=== PATIENT | female | born 1960 | race Hispanic/Latino ===

== ENCOUNTER 2018-09-15 18:43 | Inpatient (IN) | payer OTHER ==
[2018-09-15] VITALS (13 sets, daily range): BP systolic 89–106; BP diastolic 48–71
[~2018-09-15] VITALS: Ht 154.9 cm; Wt 59.4 kg
[2018-09-15] MEDS ORDERED: SODIUM CHLORIDE 0.9% 1000ML 1,000 ML IV SCH (18:50)
[2018-09-15] MEDS ORDERED: IPRATROPIUM BROMIDE 0.02% 2.5 ML NEB NEB STA (18:50)
[2018-09-15] MEDS ORDERED: LEVALBUTEROL HCL SOLN NEBU 1.25 MG/3 ML NEB INH ONE (19:00)
[2018-09-15] MEDS ORDERED: CEFTRIAXONE SOD 1 GM VIAL IV ONE (19:00)
[2018-09-15] MEDS ORDERED: FUROSEMIDE INJ 10 MG/ML 4 ML VIAL IV STA (19:03)
[2018-09-15] MEDS ORDERED: ACETAMINOPHEN 325 MG TAB PO NR (20:00)
[2018-09-15] MEDS ORDERED: FAMOTIDINE 20 MG/2 ML VIAL IV NR (20:00)
[2018-09-15] MEDS ORDERED: CEFTRIAXONE SOD 2 GM/NS 100 ML 100 ML IV ONE (20:00)
[2018-09-15] MEDS ORDERED: ASPIRIN 81 MG CHEW TAB PO ONE ×2 (20:00→20:15)
[2018-09-15] MEDS ORDERED: POTASSIUM CHLORIDE 20 MEQ TAB CR PO STA (20:02)
[2018-09-15] MEDS ORDERED: DEXTROSE 50% SYRINGE 50 ML IV PRN (20:15)
[2018-09-15] MEDS ORDERED: SODIUM CHLORIDE FLUSH 10 ML SYR INJ PRN (20:15)
[2018-09-15] MEDS: AZITHROMYCIN 500MG/NS 250 ML 250 ML IV SCH (20:30)
[2018-09-15] MEDS: INSULIN REGULAR, HUMAN 100 UNIT/1 ML 3ML VIAL SQ SCH (21:00)
--- NOTE | 2018-09-15 21:25 | NUR ---
Received to 191 from free standing ER. Placed on EKG, pulse ox & NBP for monitoring. Admission history, family history, & initial admission assessment completed. Addendum: 09/22/18 at 1506 by Narinder Grant RN Report attempted twice before third attempt, placed on hold all three times
[2018-09-15] MEDS ORDERED: FEOSOL45 MG PO (22:10)
[2018-09-15] MEDS ORDERED: METOCLOPRAMIDE10 MG PO (22:10)
[2018-09-15] MEDS ORDERED: FUROSEMIDE40 MG PO (22:10)
[2018-09-15] MEDS ORDERED: LOVASTATIN20 MG PO (22:10)
[2018-09-15] MEDS ORDERED: LOSARTAN POTASS25 MG PO (22:10)
[2018-09-15] MEDS ORDERED: OMEPRAZOLE40 MG PO (22:10)
--- NOTE | 2018-09-15 22:16 | Diagnostic Imaging Report ---
CXR 1 [facility], 09/15/2018 12:00 AM Technique: CXR 1 [facility] Comparison: None available. Clinical history: Shortness of breath, cough, congestion for a few days Findings: Single portable chest radiograph. Cardiomediastinal silhouette is upper limits of normal. Diffuse perihilar and bilateral hazy opacity. No significant effusion appreciated on limited portable technique. No pneumothorax. Impression: 1. Heart size upper limits of normal for technique. 2. Diffuse bilateral opacity which could reflect edema and/or underlying atypical infection. Consider follow-up upright PA and lateral. Signed by: Dr Paige Espinoza MD on 09/15/2018 10:13 PM
[2018-09-15] MEDS ORDERED: GLIPIZIDE ER2.5 MG PO (22:18)
[2018-09-16] VITALS (56 sets, daily range): BP systolic 80–117; BP diastolic 43–90
[2018-09-16 01:16] LABS: CREATINE KINASE 149 IU/L (29-168)
[2018-09-16 05:00] LABS: BASOPHILS % 0.6 % (0.0-1.0); EOSINOPHILS % 0.4 % (0.0-6.0); HEMATOCRIT 37.1 % (34.2-44.1); HEMOGLOBIN 12.2 g/dL (12.0-16.0); LYMPHOCYTES # (AUTO) 1.6 (1.0-3.2); MEAN CORPUSCULAR HEMOGLOBIN 29.5 pg (28-32); MEAN CORPUSCULAR HGB CONC 32.9 g/dL (31-35); MEAN CORPUSCULAR VOLUME 89.8 fL (81-99); MONOCYTES # (AUTO) 0.4 (0.2-0.8); MONOCYTES % 6.5 % (4.4-11.3); NEUTROPHILS # (AUTO) 4.7 (2.1-6.9); NEUTROPHILS % 69.4 % (38.7-80.0); PLATELET COUNT 279 x10e3/uL (140-360); RED BLOOD COUNT 4.13 x10e6/uL (3.6-5.1); RED CELL DISTRIBUTION WIDTH 12.4 % (11.7-14.4)
[2018-09-16 05:38] LABS: CREATINE KINASE MB 4.9 ng/mL (0-5.0)
[2018-09-16 06:14] LABS: ALANINE AMINOTRANSFERASE 21 IU/L (0-55); ALBUMIN 3.5 g/dL (3.5-5.0); ALBUMIN/GLOBULIN RATIO 1.1 (0.8-2.0); ALKALINE PHOSPHATASE 49 IU/L (40-150); ANION GAP 13.1 mmol/L (8-16); BLOOD UREA NITROGEN 14 mg/dL (7-26); BUN/CREATININE RATIO 20 (6-25); CALCIUM 8.8 mg/dL (8.4-10.2); CARBON DIOXIDE 26 mmol/L (22-29); CHLORIDE 105 mmol/L (98-107); EST GLOMERULAR FILTRATION RATE > 60 ML/MIN (60-); GLUCOSE 93 mg/dL (74-118); POTASSIUM 4.1 mmol/L (3.5-5.1); SODIUM 140 mmol/L (136-145)
[2018-09-16] MEDS: INSULIN REGULAR, HUMAN 100 UNIT/1 ML 3ML VIAL SQ SCH ×4 (07:30→21:00)
[2018-09-16] MEDS ORDERED: ASPIRIN 81 MG CHEW TAB PO ONE (10:15)
[2018-09-16 10:29] LABS: CHOL/HDL RATIO 2.8 (3.0-3.6)
[2018-09-16 11:18] LABS: % IRON SATURATION 30 % (15-50); ALANINE AMINOTRANSFERASE 20 IU/L (0-55); ALBUMIN 3.4 g/dL (3.5-5.0); ALBUMIN/GLOBULIN RATIO 1.1 (0.8-2.0); ALKALINE PHOSPHATASE 49 IU/L (40-150); ANION GAP 10.8 mmol/L (8-16); B-TYPE NATRIURETIC PEPTIDE2 653.3 pg/mL (0-100); BLOOD UREA NITROGEN 14 mg/dL (7-26); BUN/CREATININE RATIO 21 (6-25); CARBON DIOXIDE 28 mmol/L (22-29); CHLORIDE 104 mmol/L (98-107); CREATININE, SERUM 0.68 mg/dL (0.57-1.11); EST GLOMERULAR FILTRATION RATE > 60 ML/MIN (60-); GLUCOSE 108 mg/dL (74-118); IRON 93 ug/dL (50-170); POTASSIUM 3.8 mmol/L (3.5-5.1); SODIUM 139 mmol/L (136-145); TOTAL IRON BINDING CAPACITY 308 ug/dL (261-478); TRANSFERRIN 220 mg/dL (180-382)
[2018-09-16 11:23] LABS: CREATINE KINASE MB 4.8 ng/mL (0-5.0)
--- NOTE | 2018-09-16 13:15 | History and Physical ---
CHIEF COMPLAINT: Ms. Gill is a complex 57-year-old woman with diagnoses of diabetes, hypertension, who presented to the freestanding emergency room on the afternoon of the with a complaint of confusion and shortness of breath. HISTORY OF PRESENT ILLNESS: As obtained from the daughter at bedside in Sami. The patient speaks only Azerbaijani, reporting that the patient had been at work and got lost on the way home and that when the daughter found her at a service station that she was confused and short of breath. The patient denies any recent fever. She has felt short of breath. She adds that she did have some ankle swelling in recent months until placed on furosemide. Evidently found to have elevated blood sugars as well. PAST MEDICAL HISTORY: Significant only for the recent diagnoses within the past year of hypertension, diabetes, and edema. HOME MEDICATIONS: Recently have been 1. Furosemide 40 mg daily. 2. Glipizide 2.5 mg daily. 3. Iron tablet 45 mg daily. 4. Losartan 25 mg daily. 5. Lovastatin 20 mg daily. 6. Metoclopramide 10 mg daily. 7. Omeprazole 40 mg daily. PERSONAL/SOCIAL HISTORY: She does not smoke or drink. She lives with her boyfriend who is from [facility]. They do not eat the same food. REVIEW OF SYSTEMS NEUROLOGIC: She denies any previous problems with speech or strength. CARDIOVASCULAR: She does not describe any chest pain. HEMATOLOGIC: She reports some previous anemia, taking iron tablets. PHYSICAL EXAMINATION GENERAL: At this time shows a pleasant lady who is alert and responsive, speaking Azerbaijani only. VITAL SIGNS: Five feet 1 inches tall, weighing 124 pounds. Blood pressure is 108/63 and pulse 93 and regular. HEENT: Unremarkable. NECK: No jugular venous distention. No bruits. Thyroid not palpable. THORAX: Heart sounds S1, S2 are equal. No murmurs. RESPIRATORY: Lungs have faint crackles at the bases. ABDOMEN: Scaphoid. Normal bowel sounds, nontender. EXTREMITIES: No cyanosis, clubbing or edema. EKG shows sinus rhythm and sinus tachycardia. Computer interprets anterior scar but I disagree; there are lateral T-wave inversions. Flu screen is negative. Urinalysis is relatively unremarkable. BNP is 500. CBC shows white count 11.9, hemoglobin 14.8, hematocrit 44.7. Troponin is normal. ASSESSMENTS 1. Confusion, etiology not clear. Seems to have resolved at this time. 2. Diagnosis of congestive heart failure with elevated B natriuretic peptide and history of ankle edema, also etiology not clear. 3. History of hyperglycemia or diabetes. 4. History of hypertension. PLAN: Will withhold all of her medications and await echocardiogram. Repeat EKG. Will check thyroid functions and plan Cardiolite for her. She remains otherwise stable. Job#: [id number] ROSIO
--- NOTE | 2018-09-16 13:21 | Diagnostic Imaging Report ---
EXAM: XR CHEST 1 VIEW DATE: 09/16/2018 10:01 AM INDICATION: CHF COMPARISON: 10/13/2000, no report available FINDINGS: Lines and Tubes: None Heart and Mediastinum: Heart upper limits of normal. Lungs and Pleura: Mild prominence of the interstitium with ill-defined basilar opacities. Elevation right hemidiaphragm. Bones and Soft Tissues: No acute findings. IMPRESSION: 1. Mild edema. Signed by: Dr. Nicho Sosa MD on 09/16/2018 1:17 PM
[2018-09-16 13:24] LABS: FOLATE 16.7 ng/mL (7.0-15.4)
--- NOTE | 2018-09-16 16:06 | NUR ---
Nutrition Screen Note RD Recommendation for Physician: -Continue cardiac diet as ordered Plan of Care: RD following, monitoring for tolerance and adequacy Nutrition reason for involvement: Diagnosis CHF Primary Diagnose(s): 1. Confusion, etiology not clear. 2. Diagnosis of congestive heart failure with elevated B natriuretic peptide and history of ankle edema, also etiology not clear. PMH: DM, HTN w HbA1c of 5.3% Ht: 61in Wt: 124lb BMI: 23.4kg/m2 IBW: 105lb RD Assessment: (09/15) Chart reviewed. Labs and meds reviewed. 57 yo F, who is admitted for confusion and SOB. Daughters present on bedside to provide hx while pt is sleeping. Daughter reports pt has been eating well at home without any GI complain [employer]. Pt ate 100% of her breakfast and lunch today. LBM 09/15, normal per daughter. No complain of chewing or swallowing difficulty noted. Pt has been making effort to lose weight in the past year. No concern for malnutrition at this time. Will continue to monitor and follow. Current Diet: cardiac diet Malnutrition Evaluation (09/16) The patient does not meet criteria for a specified degree of malnutrition at this time. Will re-evaluate at follow-up as appropriate. Diet Education Needs Assessment: Diet education not indicated. Nutrition Care Level: low Signed: Rosina Montenegro, MS, RD, LD
[2018-09-16] MEDS: AZITHROMYCIN 500MG/NS 250 ML 250 ML IV SCH (19:10)
--- NOTE | 2018-09-16 20:52 | NUR ---
pt complained of chest pain after azithromycin started EKG was ordered
[2018-09-16] MEDS: ONDANSETRON HCL INJ 2 MG/ML VIAL IV PRN (21:07)
[2018-09-16] MEDS ORDERED: DIPHENHYDRAMINE HCL 25 MG CAP PO PRN (21:15)
[2018-09-16] MEDS ORDERED: ACETAMINOPHEN 325 MG TAB PO PRN (21:15)
[2018-09-16] MEDS ORDERED: DIPHENHYDRAMINE HCL 25 MG CAP ONE (21:15)
[2018-09-16] MEDS ORDERED: ACETAMINOPHEN 325 MG TAB ONE (21:16)
[2018-09-17] VITALS (43 sets, daily range): BP systolic 83–112; BP diastolic 33–74
[2018-09-17 04:58] LABS: BASOPHILS % 0.6 % (0.0-1.0); EOSINOPHILS # (AUTO) 0.1 (0.0-0.4); EOSINOPHILS % 2.1 % (0.0-6.0); HEMATOCRIT 40.7 % (34.2-44.1); HEMOGLOBIN 13.2 g/dL (12.0-16.0); LYMPHOCYTES # (AUTO) 1.9 (1.0-3.2); LYMPHOCYTES % 28.6 % (18.0-39.1); MEAN CORPUSCULAR HEMOGLOBIN 29.5 pg (28-32); MEAN CORPUSCULAR HGB CONC 32.4 g/dL (31-35); MEAN CORPUSCULAR VOLUME 90.8 fL (81-99); MONOCYTES # (AUTO) 0.4 (0.2-0.8); MONOCYTES % 6.3 % (4.4-11.3); NEUTROPHILS # (AUTO) 4.1 (2.1-6.9); NEUTROPHILS % 62.2 % (38.7-80.0); PLATELET COUNT 267 x10e3/uL (140-360); RED BLOOD COUNT 4.48 x10e6/uL (3.6-5.1); RED CELL DISTRIBUTION WIDTH 12.5 % (11.7-14.4)
[2018-09-17 05:16] LABS: ANION GAP 12.3 mmol/L (8-16); BLOOD UREA NITROGEN 19 mg/dL (7-26); BUN/CREATININE RATIO 28 (6-25); CALCIUM 8.8 mg/dL (8.4-10.2); CARBON DIOXIDE 26 mmol/L (22-29); CHLORIDE 105 mmol/L (98-107); CREATININE, SERUM 0.68 mg/dL (0.57-1.11); EST GLOMERULAR FILTRATION RATE > 60 ML/MIN (60-); GLUCOSE 101 mg/dL (74-118); POTASSIUM 4.3 mmol/L (3.5-5.1); SODIUM 139 mmol/L (136-145)
--- NOTE | 2018-09-17 07:00 | NUR ---
BEDSIDE REPORT RECVD. ASSESSMENT COMPLETED AND RECORDED. VSS AND RECORDED. DENIES PAIN AND IS DUE TO VOID. VERBALIZES UNDERSTANDING TO CURRENT POC. POC EXPLAINED IN [facility].
[2018-09-17] MEDS: INSULIN REGULAR, HUMAN 100 UNIT/1 ML 3ML VIAL SQ SCH ×4 (07:30→21:00)
[2018-09-17] MEDS: D5.45%NS/KCL 20MEQ 1,000 ML IV SCH ×3 (10:19→21:58)
[2018-09-17] MEDS ORDERED: SODIUM CHLORIDE FLUSH 10 ML SYR INJ PRN (10:30)
[2018-09-17] MEDS ORDERED: DIPHENHYDRAMINE HCL 25 MG CAP PO PRN (10:30)
--- NOTE | 2018-09-17 11:30 | NUR ---
DR MACKEY MAKING ROUNDS, UPDATED ON STATUS. DISCUSSED WITH PT AND DAUGHTER IN [facility] POC AND PROCEDURES FOR TOMORROW. PT VERBALIZING CONSENT. WRITTEN INFORMATION ON PENDING PROCEDURES IN [facility] GIVEN TO PT.
--- NOTE | 2018-09-17 11:45 | Diagnostic Imaging Report ---
Examination: Single AP view of the chest. COMPARISON: 09/16/2018 INDICATION: Post cardiac catheterization DISCUSSION: The patient is rotated to the left. The lungs remain well-inflated. Stable right hemidiaphragmatic elevation. Upper limits of normal cardiac silhouette with prominence of the perihilar interstitium, unchanged compared to prior. No new consolidation. No acute osseous abnormality. IMPRESSION: Stable chest with findings of mild interstitial pulmonary edema. Signed by: Dr. Chai Starr M.D. on 09/17/2018 11:42 AM
--- NOTE | 2018-09-17 13:23 | NUR ---
CONSENTS SIGNED PER MD ORDER. NO FURTHER QUESTIONS BY PT OR DAUGHTER AT THIS TIME.
[2018-09-17] MEDS: SODIUM CHLORIDE 0.9% 1000ML 1,000 ML IV SCH ×2 (15:47→19:00)
[2018-09-18] VITALS (47 sets, daily range): BP systolic 77–140; BP diastolic 32–84
[2018-09-18] MEDS: SODIUM CHLORIDE 0.9% 1000ML 1,000 ML IV SCH (03:09)
[2018-09-18 04:52] LABS: BASOPHILS % 0.6 % (0.0-1.0); EOSINOPHILS # (AUTO) 0.2 (0.0-0.4); EOSINOPHILS % 2.3 % (0.0-6.0); HEMATOCRIT 35.4 % (34.2-44.1); HEMOGLOBIN 11.2 g/dL (12.0-16.0); LYMPHOCYTES # (AUTO) 1.6 (1.0-3.2); LYMPHOCYTES % 24.5 % (18.0-39.1); MEAN CORPUSCULAR HEMOGLOBIN 29.5 pg (28-32); MEAN CORPUSCULAR HGB CONC 31.6 g/dL (31-35); MEAN CORPUSCULAR VOLUME 93.2 fL (81-99); MONOCYTES # (AUTO) 0.4 (0.2-0.8); MONOCYTES % 6.5 % (4.4-11.3); NEUTROPHILS # (AUTO) 4.2 (2.1-6.9); NEUTROPHILS % 65.8 % (38.7-80.0); PLATELET COUNT 245 x10e3/uL (140-360); RED CELL DISTRIBUTION WIDTH 12.3 % (11.7-14.4)
[2018-09-18 05:12] LABS: INR 0.95; PROTHROMBIN TIME 13.5 seconds (11.9-14.5)
[2018-09-18 05:13] LABS: PARTIAL THROMBOPLASTIN TIME 31.9 seconds (23.8-35.5)
[2018-09-18 05:20] LABS: ANION GAP 13.3 mmol/L (8-16); BLOOD UREA NITROGEN 12 mg/dL (7-26); BUN/CREATININE RATIO 19 (6-25); CALCIUM 8.4 mg/dL (8.4-10.2); CARBON DIOXIDE 23 mmol/L (22-29); CHLORIDE 107 mmol/L (98-107); CREATININE, SERUM 0.64 mg/dL (0.57-1.11); EST GLOMERULAR FILTRATION RATE > 60 ML/MIN (60-); GLUCOSE 90 mg/dL (74-118); POTASSIUM 4.3 mmol/L (3.5-5.1); SODIUM 139 mmol/L (136-145)
[2018-09-18] MEDS: INSULIN REGULAR, HUMAN 100 UNIT/1 ML 3ML VIAL SQ SCH ×4 (07:30→21:00)
[2018-09-18] MEDS ORDERED: LIDOCAINE HCL 2% LOCAL 20 ML VIAL ONE (08:55)
[2018-09-18] MEDS ORDERED: HEPARIN SOD/SOD CHLORIDE 2,000 ML ONE (08:56)
[2018-09-18] MEDS ORDERED: IOPAMIDOL 370 MG/ML 200 ML INFUS..BTL INJ ONE (08:56)
[2018-09-18] MEDS ORDERED: FUROSEMIDE INJ 10 MG/ML 4 ML VIAL ONE (09:28)
[2018-09-18] MEDS: FUROSEMIDE INJ 10 MG/ML 2 ML VIAL IV SCH (09:29)
[2018-09-18] MEDS: ONDANSETRON HCL INJ 2 MG/ML VIAL IV PRN (09:35)
[2018-09-18] MEDS: CARVEDILOL 3.125 MG TAB PO SCH ×2 (09:43→17:00)
[2018-09-18] MEDS: LISINOPRIL 2.5 MG TAB PO SCH (09:43)
--- NOTE | 2018-09-18 10:21 | Diagnostic Imaging Report ---
PROCEDURE: A single AP view of the chest. COMPARISON: Chest radiograph 09/17/2018. INDICATIONS: STATUS POST HEART CATH FINDINGS: Lines/tubes: None. Lungs: Persistent mild perihilar and interstitial opacities. Mild patchy left basilar opacity. No evidence of lobar consolidation. Pleura: Trace bilateral pleural effusions. No evidence of pneumothorax. Heart and mediastinum: The cardiomediastinal silhouette is unchanged. Bones: No acute bony abnormality. IMPRESSION: Persistent mild pulmonary interstitial edema and trace bilateral pleural effusions. Patchy left basilar opacity, likely atelectasis. Dictated by: STEWART BELL M.D. on 09/18/2018 at 10:32 Electronically approved by: STEWART BELL M.D. on 09/18/2018 at 10:32
--- NOTE | 2018-09-18 19:00 | NUR ---
Bedside report received from Olive Tinajero RN. Pt received sitting up in bed with eyes open, AAOx3, pt family at the bedside. Bed in lowest and locked position, call light in reach of the pt, alternating pressure mattress in use. Pt reports no pain or discomfort at this time, no signs of distress noted. Yellow socks in use, falling star posted to door frame, PUP signs posted to door frame.
[2018-09-19] VITALS (76 sets, daily range): BP systolic 53–125; BP diastolic 29–89
[2018-09-19 05:46] LABS: BASOPHILS % 0.7 % (0.0-1.0); EOSINOPHILS # (AUTO) 0.2 (0.0-0.4); EOSINOPHILS % 4.1 % (0.0-6.0); HEMATOCRIT 37.5 % (34.2-44.1); LYMPHOCYTES # (AUTO) 1.5 (1.0-3.2); LYMPHOCYTES % 26.6 % (18.0-39.1); MEAN CORPUSCULAR HEMOGLOBIN 29.2 pg (28-32); MEAN CORPUSCULAR VOLUME 91.2 fL (81-99); MONOCYTES # (AUTO) 0.5 (0.2-0.8); MONOCYTES % 8.3 % (4.4-11.3); NEUTROPHILS # (AUTO) 3.3 (2.1-6.9); NEUTROPHILS % 60.1 % (38.7-80.0); PLATELET COUNT 273 x10e3/uL (140-360); RED BLOOD COUNT 4.11 x10e6/uL (3.6-5.1); RED CELL DISTRIBUTION WIDTH 12.2 % (11.7-14.4)
--- NOTE | 2018-09-19 05:48 | Diagnostic Imaging Report ---
CHEST SINGLE (PORTABLE), 09/19/2018 7:00 AM Technique: CHEST SINGLE (PORTABLE) Comparison: Previous day Clinical history: Congestive heart failure Findings: See Impression Impression: 1. Stable mildly enlarged cardiac silhouette. 2. Central vascular congestion. No effusion or pneumothorax. Signed by: Dr Paige Espinoza MD on 09/19/2018 5:45 AM
[2018-09-19 06:11] LABS: ANION GAP 12.8 mmol/L (8-16); BLOOD UREA NITROGEN 10 mg/dL (7-26); BUN/CREATININE RATIO 14 (6-25); CARBON DIOXIDE 30 mmol/L (22-29); CHLORIDE 102 mmol/L (98-107); EST GLOMERULAR FILTRATION RATE > 60 ML/MIN (60-); GLUCOSE 88 mg/dL (74-118); POTASSIUM 3.8 mmol/L (3.5-5.1); SODIUM 141 mmol/L (136-145)
--- NOTE | 2018-09-19 07:00 | NUR ---
Bedside report given to Olive Valdes RN. Pt reports no pain or discomfort at this time. No signs of distress noted. Pt family at the bedside.
[2018-09-19] MEDS: INSULIN REGULAR, HUMAN 100 UNIT/1 ML 3ML VIAL SQ SCH ×4 (07:30→19:55)
[2018-09-19] MEDS: FUROSEMIDE INJ 10 MG/ML 2 ML VIAL IV SCH (10:00)
[2018-09-19] MEDS: CARVEDILOL 3.125 MG TAB PO SCH ×2 (10:00→16:53)
[2018-09-19] MEDS: LISINOPRIL 2.5 MG TAB PO SCH (11:46)
--- NOTE | 2018-09-19 15:19 | NUR ---
Nutrition Screen Note RD Recommendation for Physician: Please specify reason for nutrition consult. Continue diet as ordered Plan of Care: RD following, monitoring for adequacy and tolerance Nutrition reason for involvement: MD Consult Primary Diagnose(s): [facility] Ht:61 in Wt:135.31lbs BMI:25.6 kg/m2 IBW:105lbs RD Assessment:(09/19/2018) Consult received. The RD nor nurse was unable to determine the reason for the consult after reviewe of the EMR and chart on the unit Current Diet: cardiac. Pt is eating with a fair to good PO intake. Daughter present at bedside translating. Malnutrition Evaluation (09/19/2018) The patient does not meet criteria for a specified degree of malnutrition at this time. Will re-evaluate at follow-up as appropriate. Diet Education Needs Assessment: Diet education not indicated. Diet Adequacy: Meeting calorie needs, Meeting protein needs, Meeting fluid needs Tolerance: Tolerating PO Nutrition Care Level: earl Hernandez RD, LD, CNSC
--- NOTE | 2018-09-19 19:00 | NUR ---
Bedside report received from Olive Tinajero RN. Pt received resting in bed with eyes open, AAOx4, pt reports no pain or discomfort at this time, no signs of distress noted, bed in lowest and locked position, call light in reach of the pt, pts daughter and boyfriend at the bedside, yellow socks on pt, alternating pressure mattress in use.
[2018-09-20] VITALS (40 sets, daily range): BP systolic 86–118; BP diastolic 43–78
--- NOTE | 2018-09-20 07:00 | NUR ---
Bedside report given to Olive Tinajero RN. Pt resting in bed, reports no pain or discomfort at this time, no signs of distress noted at this time. Family at the bedside.
[2018-09-20] MEDS: ONDANSETRON HCL INJ 2 MG/ML VIAL IV PRN ×2 (07:09→14:30)
[2018-09-20] MEDS: GUAIFENESIN/DEXTROMETHORPHAN LIQD 5 ML UDC NG PRN (07:09)
[2018-09-20] MEDS: INSULIN REGULAR, HUMAN 100 UNIT/1 ML 3ML VIAL SQ SCH ×4 (07:30→20:38)
[2018-09-20] MEDS: FUROSEMIDE INJ 10 MG/ML 2 ML VIAL IV SCH (08:50)
[2018-09-20] MEDS: LISINOPRIL 2.5 MG TAB PO SCH (08:51)
[2018-09-20] MEDS: CARVEDILOL 3.125 MG TAB PO SCH ×2 (08:51→17:00)
--- NOTE | 2018-09-20 08:51 | NUR ---
Assisted patient to toilet, full bath, shampoo, gown and linen change; new BP cuff and pulse ox in place. Returned to bed and sitting up conversing with daughters. No present concerns.
--- NOTE | 2018-09-20 13:30 | NUR ---
Dr Healy to bedside; plan for patient to have heart catheterization tomorrow. Patient and family informed of procedure, risks, benefits, and all questions answered. All agree to the procedure and state understanding of the indication and possible procedures. No IV fluids are to be administered.
--- NOTE | 2018-09-20 16:37 | NUR ---
Consent obtained for heart cath, blood, and all possible procedures as per Dr Healy' orders.
--- NOTE | 2018-09-20 19:00 | NUR ---
Bedside report received from Olive Tinajero RN. Pt received resting in bed with eyes open AAOx4, pt reports no pain or discomfort at this time, no signs of distress noted. Discussed plan of care with pt, pt dtr, and pts boyfriend. Pt bed in lowest and locked position, call light in reach of the pt, yellow socks on pt, alternating pressure mattress in use. Consent for procedure 09/21/18 reviewed and in pt chart.
[2018-09-21] VITALS (39 sets, daily range): BP systolic 81–146; BP diastolic 39–97
[2018-09-21] MEDS: INSULIN REGULAR, HUMAN 100 UNIT/1 ML 3ML VIAL SQ SCH ×4 (07:30→20:28)
[2018-09-21] MEDS: LISINOPRIL 2.5 MG TAB PO SCH (08:11)
[2018-09-21] MEDS: CARVEDILOL 3.125 MG TAB PO SCH ×2 (08:11→18:51)
[2018-09-21 08:42] LABS: BASOPHILS # (AUTO) 0.1 (0.0-0.1); EOSINOPHILS # (AUTO) 0.2 (0.0-0.4); EOSINOPHILS % 2.1 % (0.0-6.0); HEMATOCRIT 39.9 % (34.2-44.1); HEMOGLOBIN 13.1 g/dL (12.0-16.0); LYMPHOCYTES # (AUTO) 1.7 (1.0-3.2); LYMPHOCYTES % 24.1 % (18.0-39.1); MEAN CORPUSCULAR HEMOGLOBIN 29.7 pg (28-32); MEAN CORPUSCULAR HGB CONC 32.8 g/dL (31-35); MEAN CORPUSCULAR VOLUME 90.5 fL (81-99); MONOCYTES # (AUTO) 0.5 (0.2-0.8); MONOCYTES % 6.3 % (4.4-11.3); NEUTROPHILS # (AUTO) 4.7 (2.1-6.9); NEUTROPHILS % 66.4 % (38.7-80.0); PLATELET COUNT 325 x10e3/uL (140-360); RED BLOOD COUNT 4.41 x10e6/uL (3.6-5.1)
[2018-09-21 08:57] LABS: INR 0.91; PROTHROMBIN TIME 13.1 seconds (11.9-14.5)
[2018-09-21] MEDS: FUROSEMIDE INJ 10 MG/ML 2 ML VIAL IV SCH (09:00)
[2018-09-21] MEDS: ONDANSETRON HCL INJ 2 MG/ML VIAL IV PRN (09:00)
[2018-09-21 09:01] LABS: ANION GAP 13.1 mmol/L (8-16); BLOOD UREA NITROGEN 13 mg/dL (7-26); BUN/CREATININE RATIO 17 (6-25); CALCIUM 9.5 mg/dL (8.4-10.2); CARBON DIOXIDE 31 mmol/L (22-29); CHLORIDE 97 mmol/L (98-107); CREATININE, SERUM 0.75 mg/dL (0.57-1.11); EST GLOMERULAR FILTRATION RATE > 60 ML/MIN (60-); GLUCOSE 108 mg/dL (74-118); POTASSIUM 5.1 mmol/L (3.5-5.1); SODIUM 136 mmol/L (136-145)
[2018-09-21] MEDS ORDERED: MIDAZOLAM HCL 2 MG/2 ML VIAL ONE (10:41)
[2018-09-21] MEDS ORDERED: HEPARIN SOD/SOD CHLORIDE 2,000 ML ONE (10:42)
[2018-09-21] MEDS ORDERED: FENTANYL CITRATE/PF 100MCG/2 ML INJ ONE (10:42)
[2018-09-21] MEDS ORDERED: LIDOCAINE HCL 2% LOCAL 20 ML VIAL ONE (10:42)
[2018-09-21] MEDS ORDERED: IOPAMIDOL 370 MG/ML 200 ML INFUS..BTL INJ ONE ×2 (10:42→11:18)
[2018-09-21] MEDS ORDERED: SODIUM CHLORIDE 0.9% 1000ML 1,000 ML ONE (10:42)
[2018-09-21] MEDS: GUAIFENESIN/DEXTROMETHORPHAN LIQD 5 ML UDC NG PRN ×2 (12:18→19:43)
--- NOTE | 2018-09-21 18:33 | NUR ---
right groin dressing from laboratory phlebotomist intact with small amount of drainage on bandage. pulses checked as ordered. pt in good spirits and currently out of bed in chair. family at bedside. vital signs remain stable today.
--- NOTE | 2018-09-21 19:30 | NUR ---
Received patient hemodynamically stable, relative attending, no complaints raised
--- NOTE | 2018-09-21 21:00 | NUR ---
blood glucose 83mgdl, patient stable calm in bed
[2018-09-22] VITALS (25 sets, daily range): BP systolic 78–134; BP diastolic 43–86
--- NOTE | 2018-09-22 00:55 | NUR ---
Patient calmly asleep in bed, no complaints raised
--- NOTE | 2018-09-22 04:00 | NUR ---
Patient remains hemodynamically stable, no complaint raised
[2018-09-22 04:58] LABS: ANION GAP 12.2 mmol/L (8-16); BLOOD UREA NITROGEN 12 mg/dL (7-26); BUN/CREATININE RATIO 18 (6-25); CALCIUM 8.8 mg/dL (8.4-10.2); CARBON DIOXIDE 28 mmol/L (22-29); CHLORIDE 102 mmol/L (98-107); CREATININE, SERUM 0.67 mg/dL (0.57-1.11); EST GLOMERULAR FILTRATION RATE > 60 ML/MIN (60-); GLUCOSE 89 mg/dL (74-118); POTASSIUM 4.2 mmol/L (3.5-5.1); SODIUM 138 mmol/L (136-145)
[2018-09-22] MEDS: GUAIFENESIN/DEXTROMETHORPHAN LIQD 5 ML UDC NG PRN ×2 (06:30→15:11)
--- NOTE | 2018-09-22 07:17 | NUR ---
Handed over hemodynamically stable
[2018-09-22] MEDS: INSULIN REGULAR, HUMAN 100 UNIT/1 ML 3ML VIAL SQ SCH ×4 (07:30→20:44)
[2018-09-22] MEDS: LISINOPRIL 2.5 MG TAB PO SCH (09:00)
[2018-09-22] MEDS: FUROSEMIDE INJ 10 MG/ML 2 ML VIAL IV SCH (09:28)
[2018-09-22] MEDS: CARVEDILOL 3.125 MG TAB PO SCH ×2 (09:29→17:07)
--- NOTE | 2018-09-22 09:45 | NUR ---
MD Healy paged for possible downgrade orders, awaiting response
--- NOTE | 2018-09-22 14:43 | NUR ---
Repost called to Inés CAMERON on MS2
--- NOTE | 2018-09-22 15:00 | NUR ---
Patient arrived from ICU via wheelchair with family at side. Patient is awake and alertx3, denies any CP or SOB at this time. Patient instructed to call for assistance as needed in Burmese and verbalized understanding. Call villaseñor within reach.
--- NOTE | 2018-09-22 19:05 | NUR ---
Walking rounds done and report given to oncoming shift.
[2018-09-23] VITALS: BP 123/53
[2018-09-23 04:00] VITALS: BP 96/50
[2018-09-23] MEDS: GUAIFENESIN/DEXTROMETHORPHAN LIQD 5 ML UDC NG PRN (06:09)
[2018-09-23] MEDS: INSULIN REGULAR, HUMAN 100 UNIT/1 ML 3ML VIAL SQ SCH ×3 (07:30→15:56)
[2018-09-23 08:42] VITALS: BP 105/58
[2018-09-23] MEDS: FUROSEMIDE INJ 10 MG/ML 2 ML VIAL IV SCH (09:10)
[2018-09-23] MEDS: CARVEDILOL 3.125 MG TAB PO SCH ×2 (09:30→16:34)
[2018-09-23] MEDS: LISINOPRIL 2.5 MG TAB PO SCH (09:30)
[2018-09-23] MEDS ORDERED: REGADENOSON 0.4 MG/5 ML SYR IV ONE (09:59)
[2018-09-23 12:00] VITALS: BP 114/63
--- NOTE | 2018-09-23 12:55 | NUR ---
Patient is back to the floor from having stress test. She is awake alert and oriented x3. She denies needing anything at this time, call light in reach
--- NOTE | 2018-09-23 14:41 | Operative Report ---
DATE OF PROCEDURE: September 21, 2018 TITLE OF PROCEDURE: Right and left heart catheterization. Patient was brought to the optical laboratory manager in a fasting and partially sedated state. Right groin prepped with scrub and 2% Xylocaine. A 4-Uzbek sheath was placed in the right common femoral artery and a 6-Uzbek placed in the right common femoral vein. A [place] catheterization was performed with sats and pressures recorded. The left ventriculogram performed with a 4-Uzbek pigtail, and the left main and the right coronary were both injected with the 4-Uzbek left Koby catheter as the right coronary has an anomalous origin near the left main. Inspection of films showed the left ventricular function to be reduced, estimated ejection fraction 25%. The right coronary again has an anomalous origin but no stenosis or plaquing. The left main, LAD, diagonals, circumflex and obtuse marginals all have no significant plaquing at all. The right heart pressures: The right atrium is unremarkable at 2/6, but the right ventricle has an elevated systolic pressure of 60/7 and the pulmonary artery is 60/25. Wedge is elevated at 33/60 with V waves seen. The sats do not show any stepup with the right atrium 74%, right ventricle 70%, and pulmonary artery 68%. The left ventricular end-diastolic pressure is elevated at 30. The sheaths were removed, pressure held. She was returned to her room in stable condition. FINAL IMPRESSION 1. Abnormal left ventricular function with global hypokinesis, estimated ejection fraction of 25%. 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 3. Normal coronary arteries with no plaquing or stenoses. 4. No mitral regurgitation seen. Job#: [id number] EV cc:ODALIS HURLEY MD
[2018-09-23 16:04] VITALS: BP 104/51
[2018-09-23] MEDS ORDERED: COREG3.125 MG PO (19:08)
[2018-09-23] MEDS ORDERED: LISINOPRIL2.5 MG PO (19:08)
--- NOTE | 2018-09-23 19:10 | NUR ---
Received patient awake on bed, no complaints of pain, not in distress. Call light within reached, advised to call for assistance when needed, Dr. Healy is rounding, patient is for discharge tonight, follow up in 2 weeks.
--- NOTE | 2018-09-23 20:28 | Discharge Summary ---
Ms. Gill is a complex 57-year-old woman, previously felt to have diabetes and hypertension. Who presented to the emergency room with a complaint that she was confused and short of breath and her daughter found her after she got lost driving her car coming home from work. HOSPITAL COURSE: Initial evaluation of confusion, etiology not clear. Elevated BNP is suggesting congestive heart failure. History of hyperglycemia and history of hypertension. Patient was admitted to the intensive care unit where she was very short of breath and orthopneic. All of her previous medications were held since her glucose was normal to low and her blood pressure was normal to low. Echocardiogram suggested an EF of 35% to 40% with a wall motion abnormality and although her troponins were normal, there was suspicion of coronary artery disease with the finding of a wall motion abnormality with septal hypokinesis. Patient was given bed rest and careful diuresis. Cardiac catheterization was planned on the 18 of September. However, she was so short of breath and orthopneic, she could not be taken to the [facility]. Medications were continued and patient made gradual progress. She did have allergic reaction to the azithromycin that was ordered by the ER physician with the suspicion that she might have bronchitis or pneumonia, but she did not. She was given furosemide intravenously 20 mg daily and given a regimen of lisinopril 2.5 mg daily and carvedilol 3.125 mg twice a day for congestive failure. Finally, on the , patient was taken to the [facility] where right and left heart catheterization was performed which showed elevated pulmonary artery pressure and EF estimated about 25%, but normal coronary arteries. She tolerated the procedure well and medications were continued. To further assess her cardiomyopathy, she had a Cardiolite performed today, the 23 of September, which showed normal perfusion, but calculated ejection fraction of 31%. This patient is feeling much better, she is discharged to home today to take medications of furosemide 20 mg daily, carvedilol 3.125 mg b.i.d. and lisinopril 2.5 mg daily. She will discontinue all of the medications she was taking at home before. She has not had diabetes and certainly does not have hypertension at this time. She will follow up in my office in [address] Jones's office on a regular basis. DISCHARGE DIAGNOSES 1. Idiopathic cardiomyopathy. 2. Elevated pulmonary pressures. 3. Borderline hypotension. 4. Absence of diabetes. PIPER MACKEY MD Job#: [id number] GE cc:ODALIS JONES MD
--- NOTE | 2018-09-23 20:45 | NUR ---
Patient discharged per wheelchair, discharge instructions and RX given to daughter, verbalized understanding. VS stable
--- NOTE | 2018-11-02 12:05 | Cardiology Report ---
DATE OF STUDY: September 23, 2018 LEXISCAN MYOVIEW Patient had resting perfusion images after an injection of 11 mCi of technetium-99m Myoview. Later, due to inability to exercise, she was given Lexiscan 0.4 mg intravenously and shortly afterwards 32 mCi of technetium-99m Myoview. Perfusion images were taken by rotational tomography. Comparison of resting and Lexiscan stress images shows no evidence of any perfusion defect. Additionally, gated wall motion images were obtained. There was global hypokinesis with calculated ejection fraction of 31%. FINAL IMPRESSION 1. Normal Lexiscan Myoview for perfusion. 2. Abnormal left ventricular function with global hypokinesis and calculated ejection fraction of 31%. Job#: [id number] [employer] cc:ODALIS HURLEY MD
== END 2018-09-23 20:37 | disposition home or self-care (01) | DRG 287 ==
LOC: FSED 18:43 → ERHOLD 20:16 → ICU 21:35 → MED/SURG2 09-22 15:00
PROVIDERS: ADMIT Internal Medicine Cardiovascular Disease; ATTEND Internal Medicine Cardiovascular Disease
PROC: 4A023N8 Measurement of Cardiac Sampling and Pressure, Bilateral, Percutaneous Approach (ICD-10-PCS; principal; 2018-09-21)
PROC: B2111ZZ Fluoroscopy of Multiple Coronary Arteries using Low Osmolar Contrast (ICD-10-PCS; 2018-09-21)
PROC: B2151ZZ Fluoroscopy of Left Heart using Low Osmolar Contrast (ICD-10-PCS; 2018-09-21)
DX: I11.0 Hypertensive heart disease with heart failure (principal); Q24.5 Malformation of coronary vessels; I50.41 Acute combined systolic (congestive) and diastolic (congestive) heart failure; I43 Cardiomyopathy in diseases classified elsewhere; R41.0 Disorientation, unspecified; R73.9 Hyperglycemia, unspecified; E87.6 Hypokalemia; Z28.21 Immunization not carried out because of patient refusal
CPT/HCPCS: 36415; 51700; 71045; 78452; 80048; 80053; 80061; 82550; 82553; 82607; 82746; 82948; 83036; 83540; 83605; 83880; 84436; 84443; 84466; 84479; 84484; 85025; 85610; 85730; 86039; 87040; 87086; 93005; 93017; 93306; 93460; 96360; 99284; A9502; C1766; J0456; J0696; J1940; J2001; J2250; J2405; J7030; Q9967